=== PATIENT | female | born 1955 | race Hispanic/Latino ===

== ENCOUNTER 2019-02-23 20:05 | Emergency (ER) | payer MEDICARE, OTHER ==
[~2019-02-23] VITALS: Ht 152.4 cm; Wt 91.6 kg
--- OUTSIDE RECORDS SUMMARY | 2019-02-23 20:07 | XMS REPORT ---
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 Allergies, Adverse Reactions, Alerts Allergy Name Allergy Type Status Severity Reaction(s) Onset Date Inactive Date Treating Clinician Comments No Known Allergies DA Active U 2018-03-23 00:00:00 No Known Allergies DA Active U 2017-01-27 00:00:00 Medications This patient has no known medications. Encounters Start Date/Time End Date/Time Encounter Type Admission Type Attending Clinicians Care Facility Care Department Encounter ID 2019-03-13 00:00:00 2019-03-13 00:00:00 Outpatient [facility] [id number] 2018-12-04 09:22:49 2018-12-04 09:22:49 Outpatient [facility] [id number] 2018-12-04 00:00:00 2018-12-04 00:00:00 Outpatient [facility] [id number] 2018-10-25 08:33:16 2018-10-25 08:33:16 Outpatient [facility] [id number] 2018-09-12 10:09:40 2018-09-12 10:09:40 Outpatient [facility] [id number] 2018-08-30 09:08:18 2018-08-30 09:08:18 Outpatient [facility] [id number] 2018-08-29 10:05:48 2018-08-29 10:05:48 Outpatient [facility] [id number] 2018-08-29 09:31:07 2018-08-29 09:31:07 Outpatient [facility] [id number] 2018-08-22 00:00:00 2018-08-22 00:00:00 Outpatient [facility] [id number] 2018-08-15 13:40:38 2018-08-15 13:40:38 Outpatient [facility] [id number] 2018-05-03 00:00:00 2018-05-03 00:00:00 Outpatient [facility] [id number] 2018-04-18 00:00:00 2018-04-18 00:00:00 Outpatient [facility] [id number] 2018-04-12 00:00:00 2018-04-12 00:00:00 Outpatient [facility] [id number] 2018-04-11 10:12:04 2018-04-11 10:12:04 Outpatient [facility] [id number] 2018-04-11 00:00:00 2018-04-11 00:00:00 Outpatient [facility] [id number] 2018-04-03 00:00:00 2018-04-03 00:00:00 Outpatient [facility] [id number] 2018-03-31 00:00:00 2018-03-31 00:00:00 Outpatient [facility] [id number] 2018-03-30 13:52:18 2018-03-30 13:52:18 Outpatient [facility] [id number] 2018-03-30 00:00:00 2018-03-30 00:00:00 Outpatient [facility] [id number] 2018-01-30 10:07:11 2018-01-30 10:07:11 Outpatient [facility] [id number] 2017-10-11 11:59:29 2017-10-11 11:59:29 Outpatient [facility] [id number] 2017-10-11 11:54:41 2017-10-11 11:54:41 Outpatient [facility] [id number] 2017-10-11 00:00:00 2017-10-11 00:00:00 Outpatient [facility] [id number] 2017-10-11 00:00:00 2017-10-11 00:00:00 Outpatient [facility] [id number] 2017-10-10 13:44:25 2017-10-10 13:44:25 Outpatient [facility] [id number] 2017-05-20 09:39:45 2017-05-20 09:39:45 Outpatient [facility] [id number] 2017-05-19 13:31:01 2017-05-19 13:31:01 Outpatient [facility] [id number] 2017-03-28 08:52:59 2017-03-28 08:52:59 Outpatient [facility] [id number] 2017-03-15 00:00:00 2017-03-15 00:00:00 Outpatient [facility] [id number] 2017-03-02 08:04:00 2017-03-02 08:04:00 Outpatient [facility] [id number] 2017-03-02 00:00:00 2017-03-02 00:00:00 Outpatient [facility] [id number] 2017-02-22 08:05:46 2017-02-22 08:05:46 Outpatient [facility] [id number] 2017-02-22 00:00:00 2017-02-22 00:00:00 Outpatient [facility] [id number] 2017-02-18 00:00:00 2017-02-18 00:00:00 Outpatient [facility] [id number] 2017-01-31 10:02:28 2017-01-31 10:02:28 Outpatient [facility] [id number] 2017-01-18 14:54:48 2017-01-18 14:54:48 Outpatient [facility] [id number] 2017-01-18 14:22:40 2017-01-18 14:22:40 Outpatient [facility] [id number] 2017-01-03 09:57:26 2017-01-03 09:57:26 Outpatient [facility] [id number] 2016-12-13 00:00:00 2016-12-13 00:00:00 Outpatient [facility] [id number] 2016-12-06 09:00:29 2016-12-06 09:00:29 Outpatient [facility] [id number] 2016-11-08 09:38:52 2016-11-08 09:38:52 Outpatient [facility] [id number] 2016-09-28 10:23:22 2016-09-28 10:23:22 Outpatient [facility] [id number] 2016-08-27 09:52:23 2016-08-27 09:52:23 Outpatient [facility] [id number] 2016-08-27 07:42:14 2016-08-27 07:42:14 Outpatient [facility] [id number] 2016-08-25 11:08:16 2016-08-25 11:08:16 Outpatient [facility] [id number] 2016-08-16 11:32:37 2016-08-16 11:32:37 Outpatient [facility] [id number] 2016-08-16 08:26:21 2016-08-16 08:26:21 Outpatient [facility] [id number] 2016-08-06 09:21:12 2016-08-06 09:21:12 Outpatient [facility] [id number] 2016-08-06 09:10:57 2016-08-06 09:10:57 Outpatient [facility] [id number] 2016-07-29 13:19:04 2016-07-29 13:19:04 Outpatient [facility] [id number] 2016-07-29 12:24:55 2016-07-29 12:24:55 Outpatient [facility] [id number] 2016-07-02 10:16:34 2016-07-02 10:16:34 Outpatient [facility] [id number] 2016-05-21 14:00:28 2016-05-21 14:00:28 Outpatient [facility] [id number] 2016-05-21 12:54:57 2016-05-21 12:54:57 Outpatient [facility] [id number] 2016-05-10 09:27:40 2016-05-10 09:27:40 Outpatient [facility] [id number] 2016-05-06 08:50:06 2016-05-06 08:50:06 Outpatient [facility] [id number] 2016-04-02 06:18:17 2016-04-02 06:18:17 Outpatient [facility] [id number] 2016-04-02 00:00:00 2016-04-02 00:00:00 Outpatient [facility] [id number] 2016-03-30 09:28:14 2016-03-30 09:28:14 Outpatient [facility] [id number] 2016-03-25 09:03:06 2016-03-25 09:03:06 Outpatient [facility] [id number] 2016-03-25 00:00:00 2016-03-25 00:00:00 Outpatient [facility] [id number] 2016-03-23 14:15:48 2016-03-23 14:15:48 Outpatient [facility] [id number] 2016-02-09 12:52:56 2016-02-09 12:52:56 Outpatient [facility] [id number] 2016-01-30 08:48:00 2016-01-30 08:48:00 Outpatient [facility] [id number] 2016-01-15 10:55:26 2016-01-15 10:55:26 Outpatient [facility] [id number] 2015-12-09 08:49:27 2015-12-09 08:49:27 Outpatient [facility] [id number] 2015-11-25 10:41:50 2015-11-25 10:41:50 Outpatient [facility] [id number] 2015-11-20 07:19:28 2015-11-20 07:19:28 Outpatient [facility] [id number] 2015-10-23 10:22:46 2015-10-23 10:22:46 Outpatient [facility] [id number] 2015-09-18 12:48:58 2015-09-18 12:48:58 Outpatient [facility] [id number] 2015-08-14 13:20:32 2015-08-14 13:20:32 Outpatient [facility] [id number] 2015-08-12 14:23:48 2015-08-12 14:23:48 Outpatient [facility] [id number] 2015-08-12 07:02:51 2015-08-12 07:02:51 Outpatient [facility] [id number] 2015-07-25 09:21:57 2015-07-25 09:21:57 Outpatient [facility] [id number] 2015-07-25 08:51:50 2015-07-25 08:51:50 Outpatient [facility] [id number] 2015-05-23 10:25:36 2015-05-23 10:25:36 Outpatient [facility] [id number] 2015-05-05 09:29:08 2015-05-05 09:29:08 Outpatient [facility] [id number] 2015-04-28 10:12:47 2015-04-28 10:12:47 Outpatient [facility] [id number] 2015-03-31 08:15:53 2015-03-31 08:15:53 Outpatient [facility] [id number] 2015-02-19 09:20:05 2015-02-19 09:20:05 Outpatient [facility] [id number] 2015-02-18 13:00:14 2015-02-18 13:00:14 Outpatient [facility] [id number] 2015-02-18 12:39:24 2015-02-18 12:39:24 Outpatient [facility] [id number] 2015-01-27 09:48:58 2015-01-27 09:48:58 Outpatient [facility] [id number]
[2019-02-23] MEDS ORDERED: AUGMENTIN 875-1 EACH PO (20:29)
[2019-02-23] MEDS ORDERED: TYLENOL WITH C1 EACH PO (20:29)
== END 2019-02-23 21:55 | disposition home or self-care (01) ==
LOC: ER 20:05
DX: R05 Cough (principal); H92.03 Otalgia, bilateral; J02.0 Streptococcal pharyngitis; I10 Essential (primary) hypertension; E11.9 Type 2 diabetes mellitus without complications; E78.5 Hyperlipidemia, unspecified
CPT/HCPCS: 99282

== ENCOUNTER 2020-09-18 12:24 | Emergency (ER) | payer MEDICARE, OTHER ==
[~2020-09-18] VITALS: Ht 152.4 cm; Wt 91.6 kg
[~2020-09-18 12:24] MED LIST: AUGMENTIN 875-1 EACH PO; TYLENOL WITH C1 EACH PO
[2020-09-18] MEDS ORDERED: KETOROLAC TROMETHAMINE 60 MG/2 ML VIAL IM ONE (13:15)
== END 2020-09-18 13:45 | disposition home or self-care (01) ==
LOC: ER 12:41
DX: M54.32 Sciatica, left side (principal)
CPT/HCPCS: 99282; J1885

== ENCOUNTER 2020-09-30 13:19 | Inpatient (IN) | payer MEDICARE, OTHER ==
[~2020-09-30] VITALS: Ht 152.4 cm; Wt 91.6 kg
[2020-09-30] MEDS ORDERED: SODIUM CHLORIDE 0.9% 1000ML 1,000 ML IV STA (13:30)
[2020-09-30] MEDS ORDERED: ACETAMINOPHEN 325 MG TAB PO NR (13:30)
[2020-09-30 14:08] LABS: BASOPHILS % 0.2 % (0.0-1.0); EOSINOPHILS % 0.5 % (0.0-6.0); HEMATOCRIT 35.5 % (34.2-44.1); HEMOGLOBIN 11.4 g/dL (12.0-16.0); LYMPHOCYTES # (AUTO) 0.8 (1.0-3.2); LYMPHOCYTES % 19.5 % (18.0-39.1); MEAN CORPUSCULAR HEMOGLOBIN 28.3 pg (28-32); MEAN CORPUSCULAR HGB CONC 32.1 g/dL (31-35); MEAN CORPUSCULAR VOLUME 88.1 fL (81-99); MONOCYTES # (AUTO) 0.1 (0.2-0.8); MONOCYTES % 1.4 % (4.4-11.3); NEUTROPHILS # (AUTO) 3.3 (2.1-6.9); NEUTROPHILS % 77.9 % (38.7-80.0); PLATELET COUNT 251 x10e3/uL (140-360); RED BLOOD COUNT 4.03 x10e6/uL (3.6-5.1); RED CELL DISTRIBUTION WIDTH 14.6 % (11.7-14.4)
[2020-09-30] MEDS: PIPERACILLIN/TAZOBAC 3.375 GM in SODIUM CHLORIDE 0.9% 50ML 50 ML IV SCH (14:16)
[2020-09-30 14:20] LABS: ALANINE AMINOTRANSFERASE 20 IU/L (0-55); ALBUMIN 3.8 g/dL (3.5-5.0); ALBUMIN/GLOBULIN RATIO 1.1 (0.8-2.0); ALKALINE PHOSPHATASE 58 IU/L (40-150); ANION GAP 16.9 mmol/L (8-16); BLOOD UREA NITROGEN 11 mg/dL (7-26); BUN/CREATININE RATIO 16 (6-25); CALCIUM 8.8 mg/dL (8.4-10.2); CARBON DIOXIDE 22 mmol/L (22-29); CHLORIDE 103 mmol/L (98-107); CREATINE KINASE 46 IU/L (29-168); CREATININE, SERUM 0.69 mg/dL (0.57-1.11); EST GLOMERULAR FILTRATION RATE > 60 ML/MIN (60-); GLUCOSE 154 mg/dL (74-118); POTASSIUM 3.9 mmol/L (3.5-5.1); SODIUM 138 mmol/L (136-145)
[2020-09-30] MEDS ORDERED: SODIUM CHLORIDE 0.9% 50ML 50 ML ONE ×2 (17:22→23:57)
[2020-09-30] MEDS ORDERED: IOPAMIDOL 370 MG/ML 200 ML INFUS..BTL INJ ONE (17:22)
[2020-09-30] MEDS: SODIUM CHLORIDE 0.9% 1000ML 1,000 ML IV SCH (17:36)
[2020-09-30 17:56] LABS: CLARITY,URINE SL CLOUDY (CLEAR); COLOR,URINE STRAW (YELLOW); KETONES,URINE 1+ (NEGATIVE); LEUKOCYTE ESTERASE ,URINE NEGATIVE (NEGATIVE); NITRITE,URINE POSITIVE (NEGATIVE); PROTEIN,URINE DIPSTICK TRACE (NEGATIVE); URINE UROBILINOGEN 0.2 mg/dL (0.2 - 1)
[2020-09-30 18:07] LABS: BACTERIA,URINE MANY /HPF; EPITHELIAL CELLS,URINE RARE /LPF
[2020-09-30 21:19] VITALS: BP 122/51
[2020-09-30 21:30] VITALS: BP 122/51
[2020-09-30] MEDS: ACETAMINOPHEN 325 MG TAB PO PRN (21:53)
[2020-09-30] MEDS ORDERED: PIPERACILLIN/TAZOBAC 3.375 GM VIAL ONE (23:56)
[2020-10-01] VITALS (8 sets, daily range): BP systolic 116–142; BP diastolic 53–72
[2020-10-01] MEDS ORDERED: METFORMIN HCL500 MG PO (00:29)
[2020-10-01] MEDS ORDERED: HYDROCHLOROTH12.5 MG PO (00:29)
[2020-10-01] MEDS ORDERED: AMLODIPINE BES2.5 MG PO (00:29)
[2020-10-01] MEDS ORDERED: ISOSORBIDE DINI20 MG PO (00:29)
[2020-10-01 00:35] LABS: CREATINE KINASE MB 1.3 ng/mL (0-5.0)
[2020-10-01] MEDS: SODIUM CHLORIDE 0.9% 1000ML 1,000 ML IV SCH ×3 (02:00→22:00)
[2020-10-01] MEDS: ACETAMINOPHEN 325 MG TAB PO PRN (04:03)
[2020-10-01 05:56] LABS: BASOPHILS % 0.2 % (0.0-1.0); EOSINOPHILS % 0.3 % (0.0-6.0); HEMATOCRIT 30.5 % (34.2-44.1); LYMPHOCYTES # (AUTO) 0.9 (1.0-3.2); LYMPHOCYTES % 8.8 % (18.0-39.1); MEAN CORPUSCULAR HEMOGLOBIN 28.3 pg (28-32); MEAN CORPUSCULAR HGB CONC 32.8 g/dL (31-35); MEAN CORPUSCULAR VOLUME 86.4 fL (81-99); MONOCYTES # (AUTO) 0.7 (0.2-0.8); MONOCYTES % 6.7 % (4.4-11.3); NEUTROPHILS # (AUTO) 8.5 (2.1-6.9); NEUTROPHILS % 83.5 % (38.7-80.0); PLATELET COUNT 218 x10e3/uL (140-360); RED BLOOD COUNT 3.53 x10e6/uL (3.6-5.1); RED CELL DISTRIBUTION WIDTH 14.8 % (11.7-14.4)
[2020-10-01] MEDS ORDERED: SODIUM CHLORIDE 0.9% 50ML 50 ML ONE ×4 (06:09→23:19)
[2020-10-01] MEDS ORDERED: PIPERACILLIN/TAZOBAC 3.375 GM VIAL ONE ×4 (06:09→23:18)
[2020-10-01] MEDS: PIPERACILLIN/TAZOBAC 3.375 GM in SODIUM CHLORIDE 0.9% 50ML 50 ML IV SCH ×6 (06:10→23:43)
[2020-10-01 06:16] LABS: ALANINE AMINOTRANSFERASE 19 IU/L (0-55); ALBUMIN 3.1 g/dL (3.5-5.0); ALBUMIN/GLOBULIN RATIO 1.1 (0.8-2.0); ALKALINE PHOSPHATASE 51 IU/L (40-150); ANION GAP 11.2 mmol/L (8-16); BLOOD UREA NITROGEN 7 mg/dL (7-26); BUN/CREATININE RATIO 12 (6-25); CALCIUM 7.9 mg/dL (8.4-10.2); CARBON DIOXIDE 21 mmol/L (22-29); CHLORIDE 108 mmol/L (98-107); CREATININE, SERUM 0.58 mg/dL (0.57-1.11); EST GLOMERULAR FILTRATION RATE > 60 ML/MIN (60-); GLUCOSE 174 mg/dL (74-118); POTASSIUM 3.2 mmol/L (3.5-5.1); SODIUM 137 mmol/L (136-145)
[2020-10-01] MEDS ORDERED: ISOSORBIDE DINITRATE 20 MG TAB PO SCH (10:15)
[2020-10-01] MEDS ORDERED: DEXTROSE 50% SYRINGE 50 ML IV PRN (10:15)
[2020-10-01] MEDS ORDERED: IRBESARTAN150 MG PO (10:24)
[2020-10-01] MEDS ORDERED: POTASSIUM CHLORIDE 20 MEQ TAB CR PO ONE (10:40)
[2020-10-01] MEDS: HYDROCHLOROTHIAZIDE 25 MG TAB PO SCH (11:07)
[2020-10-01] MEDS: AMLODIPINE BESYLATE 5 MG TAB PO SCH (11:07)
[2020-10-01] MEDS: INSULIN REGULAR, HUMAN 100 UNIT/1 ML 3ML VIAL SQ SCH ×3 (11:19→21:00)
[2020-10-01] MEDS: ACETAMINOPHEN/CODEINE 300MG - 30MG TAB PO PRN ×2 (11:19→18:37)
[2020-10-01] MEDS: IRBESARTAN 150 MG TAB PO SCH (21:45)
[2020-10-02] VITALS (8 sets, daily range): BP systolic 105–144; BP diastolic 49–63
[2020-10-02] MEDS: SODIUM CHLORIDE 0.9% 1000ML 1,000 ML IV SCH ×2 (04:45→09:00)
[2020-10-02] MEDS: ACETAMINOPHEN/CODEINE 300MG - 30MG TAB PO PRN ×2 (04:47→17:02)
[2020-10-02] MEDS ORDERED: PIPERACILLIN/TAZOBAC 3.375 GM VIAL ONE ×4 (04:59→23:40)
[2020-10-02] MEDS ORDERED: SODIUM CHLORIDE 0.9% 50ML 50 ML ONE ×4 (04:59→23:41)
[2020-10-02] MEDS: PIPERACILLIN/TAZOBAC 3.375 GM in SODIUM CHLORIDE 0.9% 50ML 50 ML IV SCH ×4 (05:34→23:50)
[2020-10-02] MEDS: INSULIN REGULAR, HUMAN 100 UNIT/1 ML 3ML VIAL SQ SCH ×4 (07:30→21:00)
[2020-10-02] MEDS: AMLODIPINE BESYLATE 5 MG TAB PO SCH (09:54)
[2020-10-02] MEDS: HYDROCHLOROTHIAZIDE 25 MG TAB PO SCH (09:54)
[2020-10-02] MEDS: IRBESARTAN 150 MG TAB PO SCH (21:32)
[2020-10-03] VITALS: BP 126/54
[2020-10-03 04:00] VITALS: BP 148/58
[2020-10-03] MEDS ORDERED: SODIUM CHLORIDE 0.9% 50ML 50 ML ONE ×2 (04:42→11:29)
[2020-10-03] MEDS ORDERED: PIPERACILLIN/TAZOBAC 3.375 GM VIAL ONE ×2 (04:42→11:28)
[2020-10-03] MEDS: PIPERACILLIN/TAZOBAC 3.375 GM in SODIUM CHLORIDE 0.9% 50ML 50 ML IV SCH ×2 (04:56→12:00)
[2020-10-03] MEDS: ACETAMINOPHEN/CODEINE 300MG - 30MG TAB PO PRN (05:04)
[2020-10-03] MEDS: INSULIN REGULAR, HUMAN 100 UNIT/1 ML 3ML VIAL SQ SCH ×2 (07:30→11:30)
[2020-10-03 08:45] VITALS: BP 120/77
[2020-10-03] MEDS: AMLODIPINE BESYLATE 5 MG TAB PO SCH (09:00)
[2020-10-03] MEDS: HYDROCHLOROTHIAZIDE 25 MG TAB PO SCH (09:00)
[2020-10-03 12:00] VITALS: BP 144/70
[2020-10-03] MEDS ORDERED: CIPRO250 MG PO (12:49)
== END 2020-10-03 15:18 | disposition home or self-care (01) | DRG 872 ==
LOC: ER 13:28 → ERHOLD 13:32 → MED/SURG2 20:40 → OBSVTOIN 10-01 10:53
PROVIDERS: ADMIT Internal Medicine; ATTEND Internal Medicine
PROC: 02HV33Z Insertion of Infusion Device into Superior Vena Cava, Percutaneous Approach (ICD-10-PCS; principal; 2020-09-30)
PROC: B548ZZA Ultrasonography of Superior Vena Cava, Guidance (ICD-10-PCS; 2020-09-30)
DX: A41.9 Sepsis, unspecified organism (principal); N12 Tubulo-interstitial nephritis, not specified as acute or chronic; R65.20 Severe sepsis without septic shock; I10 Essential (primary) hypertension; E11.9 Type 2 diabetes mellitus without complications; E78.5 Hyperlipidemia, unspecified; E66.01 Morbid (severe) obesity due to excess calories; E66.9 Obesity, unspecified; N39.3 Stress incontinence (female) (male); N81.4 Uterovaginal prolapse, unspecified; N28.1 Cyst of kidney, acquired; E87.6 Hypokalemia; E83.51 Hypocalcemia; D72.819 Decreased white blood cell count, unspecified; D64.9 Anemia, unspecified; K80.80 Other cholelithiasis without obstruction; Z20.822 Contact with and (suspected) exposure to COVID-19; Z68.39 Body mass index [BMI] 39.0-39.9, adult; Z79.84 Long term (current) use of oral hypoglycemic drugs
CPT/HCPCS: 36415; 36569; 70450; 71045; 71250; 74177; 80053; 81001; 82550; 82553; 82948; 83605; 83880; 84484; 85025; 87040; 87086; 93005; 99284; G0378; J1817; J2543; J7030; Q9967; U0002

== ENCOUNTER 2020-11-16 23:56 | Emergency (ER) | payer MEDICARE, OTHER ==
[~2020-11-16] VITALS: Ht 152.4 cm; Wt 87.5 kg
[~2020-11-16 23:56] MED LIST changes: +AMLODIPINE BES2.5 MG PO; +CIPRO250 MG PO; +HYDROCHLOROTH12.5 MG PO; +IRBESARTAN150 MG PO; +ISOSORBIDE DINI20 MG PO; +METFORMIN HCL500 MG PO
[2020-11-17] MEDS ORDERED: ONDANSETRON HCL INJ 2MG/ML 2ML 2 MG/ML VIAL IV STA (00:14)
[2020-11-17] MEDS ORDERED: MECLIZINE HCL 12.5 MG TAB PO ONE (00:15)
[2020-11-17 00:29] LABS: BASOPHILS % 0.7 % (0.0-1.0); EOSINOPHILS # (AUTO) 0.1 (0.0-0.4); EOSINOPHILS % 2.9 % (0.0-6.0); HEMATOCRIT 33.6 % (34.2-44.1); HEMOGLOBIN 10.9 g/dL (12.0-16.0); LYMPHOCYTES # (AUTO) 1.9 (1.0-3.2); LYMPHOCYTES % 43.1 % (18.0-39.1); MEAN CORPUSCULAR HEMOGLOBIN 28.5 pg (28-32); MEAN CORPUSCULAR HGB CONC 32.4 g/dL (31-35); MONOCYTES # (AUTO) 0.4 (0.2-0.8); MONOCYTES % 9.4 % (4.4-11.3); NEUTROPHILS % 43.7 % (38.7-80.0); PLATELET COUNT 283 x10e3/uL (140-360); RED BLOOD COUNT 3.82 x10e6/uL (3.6-5.1); RED CELL DISTRIBUTION WIDTH 15.6 % (11.7-14.4)
[2020-11-17 00:47] LABS: ALANINE AMINOTRANSFERASE 25 IU/L (0-55); ALBUMIN 4.1 g/dL (3.5-5.0); ALBUMIN/GLOBULIN RATIO 1.3 (0.8-2.0); ALKALINE PHOSPHATASE 46 IU/L (40-150); ANION GAP 15.3 mmol/L (8-16); BLOOD UREA NITROGEN 12 mg/dL (7-26); BUN/CREATININE RATIO 16 (6-25); CALCIUM 9.5 mg/dL (8.4-10.2); CARBON DIOXIDE 24 mmol/L (22-29); CHLORIDE 104 mmol/L (98-107); CREATINE KINASE 219 IU/L (29-168); CREATININE, SERUM 0.76 mg/dL (0.57-1.11); EST GLOMERULAR FILTRATION RATE > 60 ML/MIN (60-); GLUCOSE 138 mg/dL (74-118); POTASSIUM 3.3 mmol/L (3.5-5.1); SODIUM 140 mmol/L (136-145)
[2020-11-17] MEDS ORDERED: IOPAMIDOL 370 MG/ML 200 ML INFUS..BTL INJ ONE (01:14)
[2020-11-17] MEDS ORDERED: SODIUM CHLORIDE 0.9% 100 ML ONE (01:14)
[2020-11-17 02:22] VITALS: BP 134/62
== END 2020-11-17 02:31 | disposition home or self-care (01) ==
LOC: ER 11-17 00:15
DX: R42 Dizziness and giddiness (principal); R11.2 Nausea with vomiting, unspecified; I10 Essential (primary) hypertension; E78.5 Hyperlipidemia, unspecified; E11.9 Type 2 diabetes mellitus without complications; Z79.84 Long term (current) use of oral hypoglycemic drugs; Z79.899 Other long term (current) drug therapy
CPT/HCPCS: 36415; 70496; 80053; 82550; 82553; 84484; 85025; 99284; J2405; J7050; J8597; Q9967

== ENCOUNTER 2021-02-10 07:12 | Inpatient (IN) | payer MEDICARE, OTHER ==
[2021-01-15 12:33] LABS: BASOPHILS % 0.5 % (0.0-1.0); EOSINOPHILS # (AUTO) 0.1 (0.0-0.4); HEMATOCRIT 35.3 % (34.2-44.1); HEMOGLOBIN 11.1 g/dL (12.0-16.0); LYMPHOCYTES # (AUTO) 2.1 (1.0-3.2); LYMPHOCYTES % 38.2 % (18.0-39.1); MEAN CORPUSCULAR HEMOGLOBIN 27.9 pg (28-32); MEAN CORPUSCULAR HGB CONC 31.4 g/dL (31-35); MEAN CORPUSCULAR VOLUME 88.7 fL (81-99); MONOCYTES # (AUTO) 0.3 (0.2-0.8); MONOCYTES % 6.1 % (4.4-11.3); PLATELET COUNT 308 x10e3/uL (140-360); RED BLOOD COUNT 3.98 x10e6/uL (3.6-5.1); RED CELL DISTRIBUTION WIDTH 15.5 % (11.7-14.4)
[2021-01-15 12:59] LABS: ALBUMIN 4.2 g/dL (3.5-5.0); ALBUMIN/GLOBULIN RATIO 1.3 (0.8-2.0); ANION GAP 15.6 mmol/L (8-16); CALCIUM 9.6 mg/dL (8.4-10.2); CREATININE, SERUM 0.62 mg/dL (0.57-1.11); POTASSIUM 3.6 mmol/L (3.5-5.1)
[~2021-02-10] VITALS: Ht 144.8 cm; Wt 89.4 kg
[~2021-02-10 07:12] MED LIST changes: +CALCIUM CARBON500 MG PO; +FIBER TABS625 MG PO; +VITAMIN D250 MCG PO
[2021-02-10] MEDS ORDERED: SODIUM CHLORIDE 0.9% 50ML 100 ML ONE (07:29)
[2021-02-10] MEDS ORDERED: LIDOCAINE 1% W/EPINEPHRINE 20 ML VIAL ONE (07:58)
[2021-02-10] MEDS ORDERED: ESTROGENS CONJUGATED VAGINAL CR 45 GM TUBE PV ONE (07:58)
[2021-02-10] MEDS ORDERED: ONDANSETRON HCL INJ 2MG/ML 2ML 2 MG/ML VIAL IV PRN (11:15)
[2021-02-10] MEDS ORDERED: BISACODYL 5 MG TAB EC PO PRN (11:15)
[2021-02-10] MEDS ORDERED: PROMETHAZINE HCL (IM) 25 MG/ML VIAL IM PRN (11:15)
[2021-02-10] MEDS ORDERED: MEPERIDINE HCL INJ 25 MG/ML VIAL IV PRN (11:15)
[2021-02-10] MEDS ORDERED: DEXTROSE 50% SYRINGE 50 ML IV PRN (11:30)
[2021-02-10] MEDS ORDERED: ACETAMINOPHEN 1000 MG/100 ML 100 ML IV ONE (11:59)
[2021-02-10] MEDS: KETOROLAC TROMETHAMINE 30 MG/ML VIAL IV SCH ×3 (12:00→23:22)
[2021-02-10] MEDS ORDERED: MORPHINE SULFATE INJ 2 MG/ML SYR ONE (12:16)
[2021-02-10 12:45] VITALS: BP 139/64
[2021-02-10 13:27] VITALS: BP 139/64
[2021-02-10] MEDS ORDERED: SEVOFLURANE INHAL SOLN 250 ML PEN BTL ONE (13:35)
[2021-02-10] MEDS ORDERED: DEXAMETHASONE SOD PHOS INJ 4 MG/ML SDV ONE (13:35)
[2021-02-10] MEDS ORDERED: PROPOFOL IV EMULSION 10 MG/ML 20 ML VIAL ONE (13:35)
[2021-02-10] MEDS ORDERED: NEOSTIGMINE 1 MG/ML 10ML VIAL ONE (13:35)
[2021-02-10] MEDS ORDERED: POVIDONE IODINE 0.05% 0.05 % ML PO ONE (13:35)
[2021-02-10] MEDS ORDERED: ATROPINE SULFATE 1 MG/ML VIAL ONE (13:35)
[2021-02-10] MEDS ORDERED: KETOROLAC TROMETHAMINE 30 MG/ML VIAL ONE (13:35)
[2021-02-10] MEDS ORDERED: ROCURONIUM BROMIDE 10 MG/ML 5ML VIAL IV ONE (13:35)
[2021-02-10] MEDS ORDERED: ONDANSETRON HCL INJ 2MG/ML 2ML 2 MG/ML VIAL ONE (13:35)
[2021-02-10] MEDS ORDERED: LIDOCAINE HCL 2% LOCAL INJ 5 ML SDV VIAL INJ ONE (13:35)
[2021-02-10 13:38] VITALS: BP 139/64
[2021-02-10] MEDS ORDERED: FENTANYL CITRATE/PF 100MCG/2 ML INJ ONE (13:39)
[2021-02-10] MEDS ORDERED: MIDAZOLAM HCL 2 MG/2 ML VIAL ONE (13:39)
[2021-02-10] MEDS: Cefazolin 1 GM in SODIUM CHLORIDE 0.9% 50ML 50 ML IV SCH ×2 (14:22→21:17)
[2021-02-10] MEDS: SODIUM CHLORIDE 0.45% 1,000 ML IV SCH ×2 (14:22→21:17)
[2021-02-10 15:23] VITALS: BP 124/53
[2021-02-10 20:00] VITALS: BP 116/65
[2021-02-10 21:00] VITALS: BP 116/65
[2021-02-10] MEDS ORDERED: ZOLPIDEM TARTRATE 5 MG TAB PO PRN (21:00)
[2021-02-11] VITALS: BP 121/66
[2021-02-11 04:00] VITALS: BP 112/41
[2021-02-11] MEDS: Cefazolin 1 GM in SODIUM CHLORIDE 0.9% 50ML 50 ML IV SCH (05:16)
[2021-02-11] MEDS: SODIUM CHLORIDE 0.45% 1,000 ML IV SCH ×2 (05:16→10:30)
[2021-02-11] MEDS: KETOROLAC TROMETHAMINE 30 MG/ML VIAL IV SCH ×2 (05:16→11:23)
[2021-02-11 06:19] LABS: BASOPHILS % 0.2 % (0.0-1.0); HEMATOCRIT 30.3 % (34.2-44.1); HEMOGLOBIN 9.6 g/dL (12.0-16.0); LYMPHOCYTES # (AUTO) 1.4 (1.0-3.2); LYMPHOCYTES % 13.8 % (18.0-39.1); MEAN CORPUSCULAR HEMOGLOBIN 28.1 pg (28-32); MEAN CORPUSCULAR HGB CONC 31.7 g/dL (31-35); MEAN CORPUSCULAR VOLUME 88.6 fL (81-99); MONOCYTES # (AUTO) 0.6 (0.2-0.8); NEUTROPHILS # (AUTO) 7.8 (2.1-6.9); NEUTROPHILS % 79.7 % (38.7-80.0); PLATELET COUNT 269 x10e3/uL (140-360); RED BLOOD COUNT 3.42 x10e6/uL (3.6-5.1); RED CELL DISTRIBUTION WIDTH 14.6 % (11.7-14.4)
[2021-02-11 07:21] VITALS: BP 112/41
[2021-02-11 08:12] VITALS: BP 119/62
[2021-02-11 11:07] VITALS: BP 141/52
[2021-02-11 15:21] VITALS: BP 136/57
== END 2021-02-11 17:13 | disposition home or self-care (01) | DRG 742 ==
LOC: OR 07:12 → PACU V 11:14 → MED/SURG 12:31
PROVIDERS: ADMIT Obstetrics & Gynecology; ATTEND Obstetrics & Gynecology
PROC: 0JQC0ZZ Repair Pelvic Region Subcutaneous Tissue and Fascia, Open Approach (ICD-10-PCS; 2021-02-10)
PROC: 0JQC0ZZ Repair Pelvic Region Subcutaneous Tissue and Fascia, Open Approach (ICD-10-PCS; 2021-02-10)
PROC: 0USG0ZZ Reposition Vagina, Open Approach (ICD-10-PCS; 2021-02-10)
PROC: 0UT97ZZ Resection of Uterus, Via Natural or Artificial Opening (ICD-10-PCS; principal; 2021-02-10 09:18)
DX: N81.4 Uterovaginal prolapse, unspecified (principal); Z68.41 Body mass index [BMI] 40.0-44.9, adult; N39.3 Stress incontinence (female) (male); Z20.822 Contact with and (suspected) exposure to COVID-19; E66.01 Morbid (severe) obesity due to excess calories
CPT/HCPCS: 36415; 71046; 80053; 82948; 85025; 86850; 86870; 86880; 86900; 86905; 88307; 93005; 99001; 99251; J0461; J0690; J1100; J1885; J2001; J2175; J2250; J2270; J2405; J2710; J3010; U0002

== ENCOUNTER 2022-11-20 15:30 | Emergency (ER) | payer MEDICARE ==
[~2022-11-20] VITALS: Ht 144.8 cm; Wt 89.4 kg
[2022-11-20 15:39] VITALS: O2SAT 98
[2022-11-20 16:46] LABS: CLARITY,URINE HAZY (CLEAR); COLOR,URINE YELLOW (YELLOW); KETONES,URINE TRACE (NEGATIVE); LEUKOCYTE ESTERASE ,URINE SMALL (NEGATIVE); NITRITE,URINE NEGATIVE (NEGATIVE); PROTEIN,URINE DIPSTICK TRACE (NEGATIVE); URINE UROBILINOGEN 0.2 mg/dL (0.2 - 1)
[2022-11-20 16:47] LABS: BACTERIA,URINE MODERATE /HPF; EPITHELIAL CELLS,URINE FEW /LPF; WBC,URINE (MAN) >50 /HPF (0-5)
[2022-11-20 16:48] LABS: AMORPHOUS SEDIMENT,URINE FEW (FEW); MUCUS,URINE FEW (RARE)
[2022-11-20] MEDS ORDERED: CEFDINIR300 MG PO (18:22)
== END 2022-11-20 18:29 | disposition home or self-care (01) ==
LOC: ER 15:37
DX: N39.0 Urinary tract infection, site not specified (principal); I10 Essential (primary) hypertension; E11.9 Type 2 diabetes mellitus without complications; M81.0 Age-related osteoporosis without current pathological fracture; Z79.84 Long term (current) use of oral hypoglycemic drugs; Z79.899 Other long term (current) drug therapy
CPT/HCPCS: 81001; 87086; 87186; 99283

== ENCOUNTER 2024-06-13 21:40 | Emergency (ER) | payer MEDICARE, OTHER ==
[~2024-06-13] VITALS: Ht 144.8 cm; Wt 83.9 kg
[~2024-06-13 21:40] MED LIST changes: +CEFDINIR300 MG PO
[2024-06-13 21:43] VITALS: TEMP 98.2
[2024-06-13 22:23] LABS: BASOPHILS % 0.6 % (0.0-1.0); EOSINOPHILS # (AUTO) 0.2 (0.0-0.4); EOSINOPHILS % 2.6 % (0.0-6.0); HEMATOCRIT 36.8 % (34.2-44.1); HEMOGLOBIN 11.4 g/dL (12.0-16.0); LYMPHOCYTES # (AUTO) 2.9 (1.0-3.2); LYMPHOCYTES % 43.9 % (18.0-39.1); MEAN CORPUSCULAR HEMOGLOBIN 29.3 pg (28-32); MEAN CORPUSCULAR VOLUME 94.6 fL (81-99); MONOCYTES # (AUTO) 0.5 (0.2-0.8); MONOCYTES % 8.3 % (4.4-11.3); NEUTROPHILS # (AUTO) 2.9 (2.1-6.9); NEUTROPHILS % 44.4 % (38.7-80.0); PLATELET COUNT 282 x10e3/uL (140-360); RED BLOOD COUNT 3.89 x10e6/uL (3.6-5.1); RED CELL DISTRIBUTION WIDTH 14.1 % (11.7-14.4); WHITE BLOOD COUNT 6.54 x10e3/uL (4.8-10.8)
[2024-06-13 22:40] LABS: ALBUMIN 4.3 g/dL (3.5-5.0); ALBUMIN/GLOBULIN RATIO 1.4 (0.8-2.0); ANION GAP 15.1 mmol/L (8-16); BILIRUBIN,TOTAL 0.2 mg/dL (0.2-1.2); CALCIUM 9.9 mg/dL (8.4-10.2); CREATININE, SERUM 0.86 mg/dL (0.57-1.11); TOTAL PROTEIN 7.4 g/dL (6.5-8.1)
[2024-06-13 22:46] LABS: POTASSIUM 3.1 mmol/L (3.5-5.1); TROPONIN I 0.004 ng/mL (0-0.300)
[2024-06-13 23:59] VITALS: PULSE 61; RESP 18; O2SAT 99
== END 2024-06-14 00:05 | disposition home or self-care (01) ==
LOC: ER 21:48
DX: R07.89 Other chest pain (principal); R25.2 Cramp and spasm; I10 Essential (primary) hypertension; E11.9 Type 2 diabetes mellitus without complications; E78.5 Hyperlipidemia, unspecified; M81.0 Age-related osteoporosis without current pathological fracture; R94.31 Abnormal electrocardiogram [ECG] [EKG]
CPT/HCPCS: 36415; 71045; 80053; 82550; 84484; 85025; 93005; 93971; 99284